=== PATIENT | male | born 2000 | race African-American/Black ===

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

== ENCOUNTER 2021-10-15 05:56 | Emergency (ER) | payer SELFPAY ==
[2021-10-15] MEDS ORDERED: HYDROCODONE/CHLORPHEN 5 ML/OSYR ONE (07:14)
[2021-10-15 08:15] LABS: SARS-COV-2 RT PCR NEGATIVE (NEGATIVE)
--- NOTE | 2021-10-15 08:45 | RAD REPORT ---
EXAM DESCRIPTION: RAD - Chest Pa And Lat (2 Views) - 10/15/2021 7:02 am CLINICAL HISTORY: COUGH Chest pain. COMPARISON: Chest Single View dated 05/17/2020 FINDINGS: The lungs are clear. The heart is normal in size. No displaced fractures. IMPRESSION: No acute or concerning finding suspected.
--- NOTE | 2021-10-15 08:50 | EDPHYS ---
Physician Documentation [facility] Name: Bin Parekh Age: 21 yrs Sex: Male : 2000 Arrival Date: 10/15/2021 Time: 05:59 Bed 6 Private MD: ED Physician Antonio العلي HPI: 10/15 06:30 This 21 yrs old Black Male presents to ER via Ambulatory with complaints of Productive pm1 Cough. 06:30 The patient or guardian reports cough, with productive sputum, that is green. Onset: pm1 The symptoms/episode began/occurred 1 week(s) ago. Severity of symptoms: in the emergency department the symptoms are unchanged. Modifying factors: The symptoms are alleviated by nothing, the symptoms are aggravated by cold weather. Associated signs and symptoms: Pertinent positives: chest pain, with cough, sore throat, back pain, Pertinent negatives: diarrhea, fever, vomiting. The patient has not recently seen a physician. Historical: - Allergies: 06:27 No Known Allergies; df1 - Home Meds: 06:27 None [Active]; df1 - PMHx: 06:27 Enlarged Heart; df1 - PSHx: 06:27 Tonsillectomy; df1 - Immunization history:: Adult Immunizations not up to date, Client reports having NOT received the Covid vaccine. Last tetanus immunization: not indicated for visit today. Flu vaccine is not up to date. - Social history:: Smoking status: Reported history of juuling and/or vaping. Patient uses street drugs, marijuana. ROS: 06:30 Constitutional: Negative for fever, chills, and weight loss, Cardiovascular: Negative pm1 for chest pain, palpitations, and edema. 06:30 Abdomen/GI: Negative for abdominal pain, nausea, vomiting, diarrhea, and constipation. 06:30 MS/Extremity: Negative for injury and deformity, Skin: Negative for injury, rash, and discoloration, Neuro: Negative for headache, weakness, numbness, tingling, and seizure. 06:30 Respiratory: Positive for cough, with green sputum, Negative for shortness of breath, wheezing. 06:30 Back: Positive for low back pain from work. 06:30 All other systems are negative. Exam: 06:30 Constitutional: This is a well developed, well nourished patient who is awake, alert, pm1 and in no acute distress. Head/Face: Normocephalic, atraumatic. 06:30 Back: No spinal tenderness. No costovertebral tenderness. Full range of motion. Skin: Warm, dry with normal turgor. Normal color with no rashes, no lesions, and no evidence of cellulitis. MS/ Extremity: Pulses equal, no cyanosis. Neurovascular intact. Full, normal range of motion. 06:30 ENT: Exam is negative for acute changes, External ear(s): are unremarkable, Ear canal(s): are normal, TM's: are normal, Mouth: no acute changes, Lips: normal, moist, Oral mucosa: normal, pink and intact, moist, Posterior pharynx: no acute changes, erythema, is not appreciated. 06:30 Cardiovascular: Exam negative for acute changes, Rate: normal, Rhythm: regular, Pulses: no pulse deficits are appreciated, Heart sounds: normal. 06:30 Respiratory: Exam negative for acute changes, respiratory distress, shortness of breath, Breath sounds: are clear throughout. 06:30 Abdomen/GI: Exam negative for acute changes, Inspection: abdomen appears normal, Palpation: abdomen is soft and non-tender, in all quadrants. 06:30 Neuro: Exam negative for acute changes, Orientation: is normal, Mentation: is normal, Motor: is normal, moves all fours, Gait: is steady, at a normal pace, without difficulty. Vital Signs: 06:25 BP 126 / 73; Pulse 85; Resp 18; Temp 97.8; Pulse Ox 95% on R/A; Weight 111.13 kg; df1 Height 6 ft. 9 in. (205.74 cm); Pain 5/10; 08:20 BP 122 / 70; Pulse 68; Resp 16 S; Pulse Ox 96% on R/A; aa5 06:25 Body Mass Index 26.25 (111.13 kg, 205.74 cm) df1 MDM: 06:21 Patient medically screened. pm1 08:49 Data reviewed: vital signs. Data interpreted: Pulse oximetry: on room air is 95 %. pm1 Interpretation: normal. Counseling: I had a detailed discussion with the patient and/or guardian regarding: the historical points, exam findings, and any diagnostic results supporting the discharge/admit diagnosis, lab results, radiology results, the need for outpatient follow up, to return to the emergency department if symptoms worsen or persist or if there are any questions or concerns that arise at home. 10/15 06:30 Order name: COVID-19/FLU A+B (Document "Date of Onset" if Symptomatic); Complete Time: pm1 08:18 10/15 07:40 Order name: Strep pm1 10/15 06:30 Order name: Chest Pa And Lat (2 Views) XRAY; Complete Time: 08:49 pm1 10/15 07:41 Order name: Group A Streptococcus Rapid Sc; Complete Time: 08:12 EDMS 10/15 08:08 Order name: Throat Culture EDMS Administered Medications: 07:18 Drug: Tussionex Pennkinetic ER (chlorpheniramine-hydrocodone) Suspension 5 ml Route: PO;aa5 Disposition Summary: 10/15/21 08:49 Discharge Ordered Location: Home pm1 Problem: new pm1 Symptoms: have improved pm1 Condition: Stable pm1 Diagnosis - Acute upper respiratory infection, unspecified pm1 Followup: pm1 - With: Emergency Department - When: As needed - Reason: Worsening of condition Followup: pm1 - With: Private Physician - When: 2 - 3 days - Reason: Recheck today's complaints, Continuance of care, Re-evaluation by your physician Discharge Instructions: - Discharge Summary Sheet pm1 - Upper Respiratory Infection, Adult pm1 Forms: - Medication Reconciliation Form pm1 - Thank You Letter pm1 - Work release form pm1 - Antibiotic Education pm1 - Prescription Opioid Use pm1 Prescriptions: - Tessalon Perles 100 mg Oral Capsule - take 1 capsule by ORAL route every 8 hours As needed; 15 capsule; Refills: 0, pm1 Product Selection Permitted Addendum: 10/18/2021 21:59 Co-signature as Attending Physician, Antonio اعللي MD. m h7 Signatures: Dispatcher [employer] EDMS Rhonda Mccoy, LETTY RN aa5 Shamir Oconnor, CUTTER DOWN CUTTER DOWN pm1 Antonio العلي MD MD 7 So Arreola df1
--- NOTE | 2021-10-15 08:50 | ER ---
Nurse's Notes [facility] Name: Bin Parekh Age: 21 yrs Sex: Male : 2000 Arrival Date: 10/15/2021 Time: 05:59 Bed 6 Private MD: Diagnosis: Acute upper respiratory infection, unspecified Presentation: 10/15 06:25 Chief complaint: Patient states: productive cough, congestion, and lower back pain x 1 df1 week. Coronavirus screen: Vaccine status: Patient reports being unvaccinated. Client denies travel out of the [place] in the last 14 days. Client presents with at least one sign or symptom that may indicate coronavirus-19. Standard/surgical mask placed on the client. Ebola Screen: Patient negative for fever greater than or equal to 101.5 degrees Fahrenheit, and additional compatible Ebola Virus Disease symptoms Patient denies exposure to infectious person. Patient denies travel to an Ebola-affected area in the 21 days before illness onset. Initial Sepsis Screen: Does the patient meet any 2 criteria? No. Patient's initial sepsis screen is negative. Does the patient have a suspected source of infection? Yes: Productive cough/pneumonia. Risk Assessment: Do you want to hurt yourself or someone else? Patient reports no desire to harm self or others. Onset of symptoms was October 08, 2021. 06:25 Method Of Arrival: Ambulatory df1 06:25 Acuity: MILO 3 df1 Triage Assessment: 06:27 General: Appears in no apparent distress. Behavior is calm, cooperative. Pain: df1 Complains of pain in lumbar area, low back area, mid back area, left low back and left mid back Pain does not radiate. Pain currently is 5 out of 10 on a pain scale. Respiratory: Reports cough that is productive, pain with cough Pain is 5 out of 10 on a pain scale. Airway is patent Trachea midline Respiratory effort is even, unlabored, Respiratory pattern is regular, symmetrical, Breath sounds are clear bilaterally. Onset: The symptoms/episode began/occurred the patient has mild shortness of breath. Historical: - Allergies: 06:27 No Known Allergies; df1 - Home Meds: 06:27 None [Active]; df1 - PMHx: 06:27 Enlarged Heart; df1 - PSHx: 06:27 Tonsillectomy; df1 - Immunization history:: Adult Immunizations not up to date, Client reports having NOT received the Covid vaccine. Last tetanus immunization: not indicated for visit today. Flu vaccine is not up to date. - Social history:: Smoking status: Reported history of juuling and/or vaping. Patient uses street drugs, marijuana. Screenin:30 Abuse screen: Denies threats or abuse. Tuberculosis screening: No symptoms or risk df1 factors identified. Fall Risk None identified. 06:31 Nutritional screening: No deficits noted. df1 Assessment: 06:31 Cardiovascular: Rhythm is regular. df1 07:18 Reassessment: Awaiting lab and radiology results, pt notified of wait time. . General: aa5 Appears comfortable. Neuro: Level of Consciousness is awake, alert, obeys commands, Oriented to person, place, time, situation. Respiratory: Reports cough Airway is patent Respiratory effort is even, unlabored, Respiratory pattern is regular, symmetrical. Derm: Skin is dry, Skin is normal, Skin temperature is warm. 08:20 Neuro: Level of Consciousness is awake, alert, obeys commands, Oriented to person, aa5 place, time, situation. Respiratory: Airway is patent Respiratory effort is even, unlabored, Respiratory pattern is regular, symmetrical. Derm: Skin is dry, Skin is normal, Skin temperature is warm. Vital Signs: 06:25 BP 126 / 73; Pulse 85; Resp 18; Temp 97.8; Pulse Ox 95% on R/A; Weight 111.13 kg; df1 Height 6 ft. 9 in. (205.74 cm); Pain 5/10; 08:20 BP 122 / 70; Pulse 68; Resp 16 S; Pulse Ox 96% on R/A; aa5 06:25 Body Mass Index 26.25 (111.13 kg, 205.74 cm) df1 ED Course: 05:59 Patient arrived in ED. wm 06:12 Shamir Oconnor NP is PHCP. pm1 06:12 Antonio العلي MD is Attending Physician. pm1 06:24 So Arreola is Primary Nurse. df1 06:27 Triage completed. df1 06:27 Arm band placed on right wrist. df1 06:30 Patient has correct armband on for positive identification. Bed in low position. Call df1 light in reach. Side rails up X 1. Adult w/ patient. Pulse ox on. NIBP on. 06:30 No provider procedures requiring assistance completed. Patient did not have IV access df1 during this emergency room visit. 07:01 Chest Pa And Lat (2 Views) XRAY In Process Unspecified. EDMS 07:07 COVID-19/FLU A+B (Document "Date of Onset" if Symptomatic) Sent. df1 Administered Medications: 07:18 Drug: Tussionex Pennkinetic ER (chlorpheniramine-hydrocodone) Suspension 5 ml Route: PO;aa5 Outcome: 08:49 Discharge ordered by MD. pm1 09:13 Discharged to home ambulatory, with significant other. aa5 09:13 Condition: stable 09:13 Discharge instructions given to patient, Instructed on discharge instructions, follow up and referral plans. medication usage, Demonstrated understanding of instructions, follow-up care, medications, Prescriptions given X 1. 09:15 Patient left the ED. iw Signatures: Dispatcher [employer] EDMS Cecily Mcbride RN RN iw Rhonda Mccoy RN RN aa5 Shamir Oconnor, ISMAEL CONCRETE FINISHER pm1 Tiny Rubio Dawn df1
[2021-10-15 09:21] VITALS: TEMP 97.8
[2021-10-15 09:23] VITALS: BP 122/70; O2SAT 96
== END 2021-10-15 09:15 | disposition home or self-care (01) ==
LOC: ER 05:56
DX: J06.9 Acute upper respiratory infection, unspecified (principal); M54.50 Low back pain, unspecified
CPT/HCPCS: 0240U; 71046; 87070; 87081; 99284

== ENCOUNTER 2023-07-13 16:32 | Emergency (ER) | payer SELFPAY ==
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
[2023-07-13 20:29] VITALS: BP 139/85; TEMP 99.3; O2SAT 99
== END 2023-07-13 19:57 | disposition left against medical advice (07) ==
LOC: ER 16:32
DX: Z53.21 Procedure and treatment not carried out due to patient leaving prior to being seen by health care provider (principal)
CPT/HCPCS: 99281

== ENCOUNTER 2024-07-25 10:47 | Emergency (ER) | payer SELFPAY ==
--- NOTE | 2024-07-25 11:18 | EDPHYS ---
Physician Documentation [facility] Name: Bin Parekh Age: 24 yrs Sex: Male : 2000 Arrival Date: 07/25/2024 Time: 10:47 Bed Waiting Private MD: ED Physician Shahriar Danielle HPI: 07/25 11:44 This 24 yrs old Black Male presents to ER via Ambulatory with complaints of Rash. sb4 11:44 The patient's rash thought to be caused by Dermatitis. The rash is located on the sb4 pelvis and face. The rash can be described as urticarial. Onset: The symptoms/episode began/occurred today. Associated signs and symptoms: Pertinent positives: itching, Pertinent negatives: difficulty breathing, swelling of lips, swelling of throat, swelling of tongue, wheezing. Treatment given at home: none. The patient has experienced a previous episode. The patient has not recently seen a physician. Historical: - Allergies: 11:19 No Known Allergies; ap3 - PMHx: 11:19 Enlarged Heart; ap3 - PSHx: 11:19 Tonsillectomy; ap3 - Immunization history:: Client reports having NOT received the Covid vaccine. Last tetanus immunization: unknown, Flu vaccine is not up to date. - Infectious Disease History:: Denies. - Social history:: Smoking status: Patient/guardian denies using tobacco, Stopped _ months ago 3. ROS: 11:44 Constitutional: Negative for fever, chills, and weight loss, sb4 11:44 Skin: Positive for rash, of the face and pelvis, 11:44 All other systems are negative, Exam: 11:44 Constitutional: This is a well developed, well nourished patient who is awake, alert, sb4 and in no acute distress. Head/Face: Normocephalic, atraumatic. Eyes: Extra-ocular motions intact. Periorbital areas with no swelling, redness, or edema. ENT: Mucous membranes moist. Respiratory: Lungs have equal breath sounds bilaterally, clear to auscultation and percussion. No rales, rhonchi or wheezes noted. No increased work of breathing, no retractions or nasal flaring. 11:44 Skin: rash a mild rash is noted, contact dermatitis, on the pelvis and face, Vital Signs: 11:17 BP 145 / 96; Pulse 71; Resp 17; Temp 97.3; Pulse Ox 100% ; Weight 63.5 kg; Height 6 ft. ap3 9 in. ; Pain 0/10; 11:17 Body Mass Index 15.00 (63.50 kg, 205.74 cm) ap3 11:17 Pain Scale: Adult ap3 MDM: 10:53 Patient medically screened. sb4 11:44 Data reviewed: vital signs, nurses notes, and as a result, I will discharge patient. sb4 Counseling: I had a detailed discussion with the patient and/or guardian regarding the historical points, exam findings, and any diagnostic results supporting the discharge/admit diagnosis, to return to the emergency department if symptoms worsen or persist or if there are any questions or concerns that arise at home. Administered Medications: No medications were administered Disposition Summary: 07/25/24 11:17 Discharge Ordered Notes: Location: Home sb4 Problem: new sb4 Symptoms: are unchanged sb4 Condition: Stable sb4 Diagnosis - Unspecified contact dermatitis due to plants, except food sb4 Followup: sb4 - With: Emergency Department - When: As needed - Reason: Trouble breathing, Worsening of condition Discharge Instructions: - Discharge Summary Sheet sb4 - Poison Emelia Dermatitis sb4 Forms: - Patient Portal Instructions sb4 - Leadership Thank You Letter sb4 Prescriptions: - Medrol (Markie) 4 mg Oral Tablets, Dose Pack - take 1 tablet ORAL route as directed - follow package instructions; 1 packet; sb4 Refills: 0, Product Selection Permitted Signatures: Susana Galeana RN RN ap3 Nan Story PA-C PA-C sb4
--- NOTE | 2024-07-25 11:22 | ER ---
Nurse's Notes [facility] Name: Bin Parekh Age: 24 yrs Sex: Male : 2000 Arrival Date: 07/25/2024 Time: 10:47 Bed Waiting Private MD: Diagnosis: Unspecified contact dermatitis due to plants, except food Presentation: 07/25 11:17 Chief complaint: Patient states: he come into contact with poison leno 2 days ago. ap3 patient is now having a rash on his face and groin area. Coronavirus screen: At this time, the client does not indicate any symptoms associated with coronavirus-19. Ebola Screen: No symptoms or risks identified at this time. Initial Sepsis Screen: Does the patient meet any 2 criteria? No. Patient's initial sepsis screen is negative. Does the patient have a suspected source of infection? No. Patient's initial sepsis screen is negative. Risk Assessment: Do you want to hurt yourself or someone else? Patient reports no desire to harm self or others. Onset of symptoms was July 23, 2024. 11:17 Method Of Arrival: Ambulatory ap3 11:17 Acuity: MILO 4 ap3 Triage Assessment: 11:19 General: Appears in no apparent distress. Behavior is calm, cooperative, appropriate ap3 for age. Pain: Denies pain. Neuro: Level of Consciousness is awake, alert, obeys commands, Oriented to person, place, time, situation, Appropriate for age. Cardiovascular: Patient's skin is warm and dry. Respiratory: Airway is patent Respiratory effort is even, unlabored, Respiratory pattern is regular, symmetrical. Derm: Rash noted that is itchy, on face and pelvis. Historical: - Allergies: 11:19 No Known Allergies; ap3 - PMHx: 11:19 Enlarged Heart; ap3 - PSHx: 11:19 Tonsillectomy; ap3 - Immunization history:: Client reports having NOT received the Covid vaccine. Last tetanus immunization: unknown, Flu vaccine is not up to date. - Infectious Disease History:: Denies. - Social history:: Smoking status: Patient/guardian denies using tobacco, Stopped _ months ago 3. Screenin:20 [facility] ED Fall Risk Assessment (Adult) History of falling in the last 3 months, ap3 including since admission No falls in past 3 months (0 pts) Confusion or Disorientation No (0 pts) Intoxicated or Sedated No (0 pts) Impaired Gait No (0 pts) Mobility Assist Device Used No (0 pt) Altered Elimination No (0 pt) Score/Fall Risk Level 0 - 2 = Low Risk Oriented to surroundings, Maintained a safe environment, Educated pt \T\ family on fall prevention, incl call for assistance when getting out of bed, Assessed \T\ reinforced patient's understanding of fall precautions, Hourly rounding (assess needs \T\ fall precautionary measures) done, Used ambulatory aids as needed (educated on \T\ assisted with), Used gait belt as appropriate. Abuse screen: Denies threats or abuse. Nutritional screening: No deficits noted. Tuberculosis screening: No symptoms or risk factors identified. Vital Signs: 11:17 BP 145 / 96; Pulse 71; Resp 17; Temp 97.3; Pulse Ox 100% ; Weight 63.5 kg; Height 6 ft. ap3 9 in. ; Pain 0/10; 11:17 Body Mass Index 15.00 (63.50 kg, 205.74 cm) ap3 11:17 Pain Scale: Adult ap3 ED Course: 10:49 Patient arrived in ED. im 10:49 Nan Story [facility]-C [facility]. sb4 10:49 Shahriar Danielle MD is Attending Physician. sb4 11:19 Triage completed. ap3 11:21 Arm band placed on right wrist. ap3 11:21 Patient has correct armband on for positive identification. ap3 11:21 Provided Education on: good RX. ap3 11:21 No provider procedures requiring assistance completed. Patient did not have IV access ap3 during this emergency room visit. Administered Medications: No medications were administered Medication: 11:21 VIS not applicable for this client. ap3 Outcome: 11:17 Discharge ordered by . sb4 11:21 Discharged to home ambulatory, ap3 11:21 Condition: good 11:21 Discharge instructions given to patient, Instructed on discharge instructions, follow up and referral plans. Demonstrated understanding of instructions, follow-up care, medications, Prescriptions given X 1, 11:22 Patient left the ED. ap3 Signatures: Susana Galeana RN RN ap3 Nan Story PA-C PA-C sb4 Ludy Morrow im
[2024-07-25 11:26] VITALS: BP 145/96; TEMP 97.3; O2SAT 100
== END 2024-07-25 11:22 | disposition home or self-care (01) ==
LOC: ER 10:47
DX: L25.5 Unspecified contact dermatitis due to plants, except food (principal)
CPT/HCPCS: 99283